=== PATIENT | male | born 1975 | race Caucasian/White ===

== ENCOUNTER 2020-09-07 06:46 | Emergency (ER) | payer MEDICAID, SELFPAY ==
[2020-09-07 06:47] VITALS: BP 128/93; PULSE 58; RESP 20; TEMP 36.4; O2SAT 100; BMI 20.9
--- NOTE | 2020-09-07 06:55 | CT_ITS ---
STUDY: CT ABDOMEN AND PELVIS WITHOUT CONTRAST REASON FOR EXAM: Male, 45 years old. Left flank pain and hematuria x several days, hx stones, hernia surgery. RADIATION DOSAGE (If Supplied By Facility): CTDIvol = ( 6.14 ) mGy, DLP = ( 297.91 ) mGycm TECHNIQUE: Transaxial images were obtained from the dome of the diaphragm to the symphysis pubis without oral contrast, and without intravenous contrast. Sagittal and coronal images were reconstructed. Individualized dose optimization techniques were used for this CT. COMPARISON: 06/24/2017 FINDINGS: The visualized lung bases are unremarkable. The visualized portions of the heart are within normal limits. Normal liver. Normal gallbladder and extrahepatic biliary system. Normal spleen. Normal pancreas. Normal bilateral adrenal glands. There are scattered calcifications of the right kidney measuring up to 7 mm on image 45 of series 1002. Small punctate calcifications of the left kidney measuring 1-2 mm, centrally. No hydronephrosis or ureteric calculi. There are numerous vascular phleboliths of the bilateral pelvis. No perinephric stranding. Normal visualized stomach. Normal small intestine. Normal colon. The appendix is visualized and appears normal. Normal abdominal aorta. Normal inferior vena cava. Normal retroperitoneum. Nondistended urinary bladder. There are operative changes of the bilateral inguinal regions. Normal osseous structures. CT/Abdomen/Pelvis without Cont IMPRESSION: 1. Bilateral nephrolithiasis (right calculi larger than left). No hydronephrosis or ureteral calculi. Electronically Signed: Daniel Giordano MD ([place]) at 7:56 EST , Service support ,
--- NOTE | 2020-09-07 06:55 | ED.VIS.GEN ---
History of Present Illness Informant: Patient Narrative: 45-year-old male presents to the emergency department with left flank pain rating to the left inguinal region. He tells me he has a history of kidney stones. He notes for the previous couple days has had pain in his right flank but that is gone away and tonight developed severe pain in the left flank. He states the left testicle is aching. He notes urinary frequency but very little output. He states that his urine is very dark. He is now vomiting. No fevers. He has been having normal bowel movements. He has had kidney stones in the past but never required surgery. He notes a history of inguinal hernia surgery. <Son Perales - Last Filed: 09/07/20 06:55> <William Mccarthy - Last Filed: 09/07/20 08:48> Chief Complaint: Flank Pain Past Medical History Past Medical History: - - Kidney stones Surgical History: herniorrhaphy Smoking Status: Current every day smoker Drugs: None <Son Perales - Last Filed: 09/07/20 06:55> <William Mccarthy - Last Filed: 09/07/20 08:48> - Allergies and Home Meds Allergies/Adverse Reactions: Allergies No Known Allergies Allergy (Verified 09/07/20 06:52) Primary Care Physician: Care Physician,No Primary [Primary Care Provider] - Review of Systems General: Denies: Chills, Fever, Sweats Eyes: Denies: Visual changes - bilaterally, Diplopia ENT: Denies: Rhinorrhea, Sore throat Cardiovascular: Denies: Chest pain, Palpitations Respiratory: Denies: Dyspnea, Cough, Dyspnea on exertion Gastrointestinal: Reports: Abdominal pain, Nausea, Vomiting. Denies: Diarrhea, Melena, Hematochezia Genitourinary: Reports: Frequency, - - Dark urine. Denies: Dysuria, Hematuria Musculoskeletal: Reports: Back pain. Denies: Extremity Pain Skin: Denies: Rash, Wounds Neurological: Denies: Headache, Weakness, Numbness <Son Perales - Last Filed: 09/07/20 06:55> Physical Exam Vital Signs/Narrative: Vital Signs Temp Pulse Resp BP Pulse Ox 09/07/20 06:47 97.6 F L 58 L 20 H 128/93 H 100 Inital Vital Signs reviewed: Yes General: Well nourished, Well developed, No Acute Distress, - - Patient is vomiting Head: Normocephalic, Atraumatic Eyes: Perrl, EOMI ENT: Moist mucous membranes, No rhinorrhea Neck: Supple, Nontender Cardiovascular: Regular rate, Regular rhythm, No murmurs Respiratory: No distress, CTA bilaterally, Chest nontender Abdomen: Soft, Nontender, Nondistended, Normal bowel sounds Back: CVA tenderness Extremities: Nontender, No edema Skin: Normal color, No rash Neurological: Alert, Oriented x3, Cranial nerves II-XII grossly intact, Normal Strength, Normal Sensation Psychological: Normal affect, Normal Mood <Son Perales - Last Filed: 09/07/20 06:55> Vital Signs/Narrative: Vital Signs Temp Pulse Resp BP Pulse Ox 09/07/20 06:47 97.6 F L 58 L 20 H 128/93 H 100 <William Mccarthy - Last Filed: 09/07/20 08:48> Diagnostic/Tx/Re-eval - Medical Decision Making Care of the patient was turned over to me. CBC shows a leukocytosis of 15.0. This is likely due to the nausea and vomiting. Basic metabolic profile was essentially within normal limits. CT scan of the abdomen pelvis was obtained. There is no ureteral calculi or hydronephrosis or hydroureter. Urinalysis showed some hematuria but no evidence of urinary tract infection. Patient was feeling somewhat better on reevaluation. Patient was given a prescription for Zofran. Patient was instructed to follow-up with his primary care physician in 5 to 7 days. Patient understood and was agreeable with the plan. All questions were answered. <William Mccarthy - Last Filed: 09/07/20 08:48> ED Disposition <Son Perales - Last Filed: 09/07/20 06:55> <William Mccarthy - Last Filed: 09/07/20 08:48> - Plan for ED Patient: Disposition: Home or Assisted Living Diagnosis: Left flank pain Instructions: ED Flank Pain, Uncertain Cause Prescriptions: Ondansetron [Zofran Odt] 4 mg PO Q8H PRN PRN #10 tab PRN Reason: Nausea Prescription Printed Referrals: Zahira Brower [NON-STAFF] - 5-7 Days
[2020-09-07 07:04] LABS: Absolute Lymphocyte Count 3.63 X10^3/uL (0.83-4.51); Basophil# 0.07 X10^3/uL; Basophil% 0.5 % (0-1); Eosinophil# 1.09 X10^3/uL; Eosinophils% 7.3 % (0-5); Hematocrit 45.5 % (40-54); Hemoglobin 15.1 g/dL (13.0-16.5); Lymphocyte # 3.63 X10^3/ul (4.0); Lymphocyte % 24.2 % (19-41); Mean Corp Hgb Conc 33.2 g/dL (32-36); Mean Corpuscular Hgb 30.3 pg (27.0-32.0); Mean Corpuscular Volume 91.4 fL (80-94); Mean Platelet Vol. 12.2 fl (6.2-12.0); Monocyte# 1.18 X10^3/uL; Monocyte% 7.9 % (0-10); NRBC Flagged by Analyzer 0 % (0-5); Neutrophil # 8.97 X10^3/uL (2.7-7.7); Neutrophil % 59.8 % (47-70); Platelet Count 283 K/mm3 (150-450); RBC Distribution Width CV 13.1 % (11.6-14.6); RBC Distribution Width SD 43.9 fl (35.1-43.9); Red Blood Count 4.98 M/mm3 (4.6-6.2)
[2020-09-07] MEDS: Ondansetron 4 MG/2 ML Vial IV (07:07)
[2020-09-07] MEDS: 0.9% Normal Saline 1,000 ML 250 ML IV (07:07)
[2020-09-07] MEDS: Morphine 4 MG/ML Syringe IV (07:08)
[2020-09-07] MEDS: Ketorolac 30 MG/ML Syringe IV (07:08)
[2020-09-07 07:25] LABS: Anion Gap 4 (5-15); BUN 18 mg/dL (7-18); BUN/Creat Ratio 14.5 RATIO (10-20); Calcium,Total 9.4 mg/dL (8.5-10.1); Chloride 109 mmol/L (98-107); Creatinine, Serum 1.24 mg/dL (0.70-1.30); EST Glomerular Filtration Rate 66 mL/min (>60); Est Glom Filt Rate - Afr Amer 80 mL/min (>60); Estimated Creatinine Clearance 75.08 ml/min; Glucose 104 mg/dL (74-106); Potassium 3.8 mmol/L (3.5-5.1); Sodium Level 142 mmol/L (136-145)
[2020-09-07 07:31] LABS: Color, Urine Yellow (Yellow); Glucose, Dipstick Normal (Normal); Ketone-Dipstick 5 mg/dl (Negative); Leukocyte Esterase-Dipstick 25 /ul (Negative); Nitrite-Dipstick Negative (Negative); Occult Blood-Urine 250 /ul (Negative); Protein-Dipstick 30 mg/dl (Negative); Specific Gravity, Urine 1.025 (1.002-1.030); Urine Bilirubin Dipstick Negative (Negative); Urine Clarity Sl. Cloudy (Clear); Urine Urobilinogen 1 mg/dl (Normal)
[2020-09-07 07:45] LABS: Bacteria 1+ /hpf (None Seen); Mucous, Urine 2+ /hpf (<or=2+); Red Blood Cells-Urine 25-50 SEEN /hpf (0-5); Squamous Epithelial Cells - UA 0-5 SEEN /hpf (0-5); White Blood Cells 0-5 SEEN /hpf (0-5)
[2020-09-07 08:57] VITALS: BP 124/68; PULSE 71; RESP 16; O2SAT 99
== END 2020-09-07 08:57 | disposition home or self-care (01) ==
PROVIDERS: Emergency Medicine; Emergency Provider Emergency Medicine
DX: R10.9 Unspecified abdominal pain (principal)
CPT/HCPCS: 74176; 80048; 81001; 85025; 96374; 96375; 99285; J7030; A4216; J2405

== ENCOUNTER 2020-11-07 06:16 | Emergency (ER) | payer MEDICAID, SELFPAY ==
[2020-11-07 06:17] VITALS: BP 133/86; PULSE 54; RESP 14; TEMP 36.1; O2SAT 98; BMI 19.6
--- NOTE | 2020-11-07 06:27 | CT_ITS ---
STUDY: CT ABDOMEN AND PELVIS WITHOUT CONTRAST REASON FOR EXAM: Male, 45 years old. Kidney Stone. Left flank pain. History of right inguinal hernia surgery. RADIATION DOSAGE (If Supplied By Facility): CTDIvol = ( 6.04 ) mGy, DLP = ( 297.48 ) mGycm TECHNIQUE: Transaxial images were obtained from the dome of the diaphragm to the symphysis pubis without oral contrast, and without intravenous contrast. Sagittal and coronal images were reconstructed. Individualized dose optimization techniques were used for this CT. COMPARISON: CT scan 09/07/2020. FINDINGS: The visualized lung bases are unremarkable. The visualized portions of the heart are within normal limits. Normal liver. Normal gallbladder and extrahepatic biliary system. Normal spleen. Normal pancreas. Normal bilateral adrenal glands. There are 5 nonobstructive right renal calculi, ranging up to 8 mm.. There is no demonstrated right ureteral calculus or hydronephrosis. No ureteral calculus is identified. There or 3 nonobstructive left renal calculi, ranging up to 2.5 mm. There is mild hydronephrosis of the left kidney. No ureteral calculus is identified. Normal visualized stomach. Normal small intestine. Normal colon. There is non-visualization of the appendix. There is no evidence for appendicitis. Normal abdominal aorta. Normal inferior vena cava. Normal retroperitoneum. Normal urinary bladder. There are numerous phleboliths in the pelvis bilaterally. Normal abdominal wall. Normal osseous structures. CT/Abdomen/Pelvis without Cont IMPRESSION: Multiple nonobstructive renal calculi bilaterally. Mild hydronephrosis of the left kidney without a visualized left ureteral calculus. Given the presence of numerous pelvic phleboliths, it is conceivable that a small, minimally obstructive distal ureteral calculus might be missed. Alternatively, the hydronephrosis might be due to a recently passed ureteral calculus or pyelonephritis. No other evidence for acute pathology. Electronically Signed: Chance Castaneda MD at 8:04 EDT , Service support ,
--- NOTE | 2020-11-07 06:36 | ED.VIS.GEN ---
History of Present Illness Informant: Patient Narrative: 45-year-old male history of kidney stones presents with left-sided flank pain and testicular pain. He states he has not been able to urinate today. No diarrhea or constipation. He notes some nausea yesterday but did not really have any pain. He notes a chronic ache in his flanks but this feels different. He does not have a primary care doctor. <Son Perales - Last Filed: 11/07/20 07:08> <Sawyer Jackman - Last Filed: 11/07/20 08:49> Chief Complaint: Flank Pain Past Medical History Surgical History: herniorrhaphy Smoking Status: Current every day smoker Drugs: None <Son Perales - Last Filed: 11/07/20 07:08> <Sawyer Jackman - Last Filed: 11/07/20 08:49> - Allergies and Home Meds Allergies/Adverse Reactions: Allergies No Known Allergies Allergy (Verified 09/07/20 06:52) Primary Care Physician: Care Physician,No Primary [Primary Care Provider] - Physical Exam Vital Signs/Narrative: Vital Signs Temp Pulse Resp BP Pulse Ox 11/07/20 06:17 97.0 F L 54 L 14 133/86 H 98 <Son Perales - Last Filed: 11/07/20 07:08> Vital Signs/Narrative: Vital Signs Temp Pulse Resp BP Pulse Ox 11/07/20 08:20 60 18 126/87 H 99 11/07/20 06:17 97.0 F L 54 L 14 133/86 H 98 <Sawyer Jackman - Last Filed: 11/07/20 08:49> Diagnostic/Tx/Re-eval Laboratory Last Values WBC 10.3 K/mm3 (4.4-11.0) 11/07/20 06:30 RBC 4.65 M/mm3 (4.6-6.2) 11/07/20 06:30 Hgb 14.0 g/dL (13.0-16.5) 11/07/20 06:30 Hct 42.4 % (40-54) 11/07/20 06:30 MCV 91.2 fL (80-94) 11/07/20 06:30 MCH 30.1 pg (27.0-32.0) 11/07/20 06:30 MCHC 33.0 g/dL (32-36) 11/07/20 06:30 RDW Std Deviation 45.7 fl (35.1-43.9) H 11/07/20 06:30 RDW Coeff of Mitch 13.4 % (11.6-14.6) 11/07/20 06:30 Plt Count 241 K/mm3 (150-450) 11/07/20 06:30 MPV 11.6 fl (6.2-12.0) 11/07/20 06:30 Immature Gran % (Auto) 0.300 % (0.0-0.9) 11/07/20 06:30 Neut % (Auto) 59.4 % (47-70) 11/07/20 06:30 Lymph % (Auto) 22.0 % (19-41) 11/07/20 06:30 [place] % (Auto) 10.0 % (0-10) 11/07/20 06:30 Eos % (Auto) 7.6 % (0-5) H 11/07/20 06:30 Baso % (Auto) 0.7 % (0-1) 11/07/20 06:30 Absolute Neuts (auto) 6.2 X10^3/uL (2.0-7.7) 11/07/20 06:30 Absolute Lymphs (auto) 2.27 X10^3/uL (0.83-4.51) 11/07/20 06:30 Nucleated RBC % 0 % (0-5) 11/07/20 06:30 Sodium 140 mmol/L (136-145) 11/07/20 06:30 Potassium 3.9 mmol/L (3.5-5.1) 11/07/20 06:30 Chloride 107 mmol/L (98-107) 11/07/20 06:30 Carbon Dioxide 29.0 mmol/L (21.0-32.0) 11/07/20 06:30 Anion Gap 4 (5-15) L 11/07/20 06:30 BUN 18 mg/dL (7-18) 11/07/20 06:30 Creatinine 1.31 mg/dL (0.70-1.30) H 11/07/20 06:30 Estim Creat Clear Calc 68.43 ml/min 11/07/20 06:30 Est GFR (MDRD) Af Amer 75 mL/min (>60) 11/07/20 06:30 Est GFR (MDRD) Non-Af 62 mL/min (>60) 11/07/20 06:30 BUN/Creatinine Ratio 13.7 RATIO (10-20) 11/07/20 06:30 Glucose 112 mg/dL (74-106) H 11/07/20 06:30 Calcium 9.3 mg/dL (8.5-10.1) 11/07/20 06:30 Urine Color Yellow (Yellow) 11/07/20 06:30 Urine Clarity Clear (Clear) 11/07/20 06:30 Urine pH 5.0 (5.0 - 8.0) 11/07/20 06:30 Ur Specific [place] 1.025 (1.002-1.030) 11/07/20 06:30 Urine Protein 15 mg/dl (Negative) H 11/07/20 06:30 Urine Glucose (UA) Normal mg/dl (Normal) 11/07/20 06:30 Urine Ketones 5 mg/dl (Negative) H 11/07/20 06:30 Urine Occult Blood 25 /ul (Negative) H 11/07/20 06:30 Urine Nitrite Negative (Negative) 11/07/20 06:30 Urine Bilirubin Negative mg/dL (Negative) 11/07/20 06:30 Urine Urobilinogen 1 mg/dl (Normal) H 11/07/20 06:30 Ur Leukocyte Esterase 25 /ul (Negative) H 11/07/20 06:30 Urine RBC 0-5 SEEN /hpf (0-5) 11/07/20 06:30 Urine WBC 0-5 SEEN /hpf (0-5) 11/07/20 06:30 Ur Squamous Epith Cells 0 SEEN /hpf (0-5) 11/07/20 06:30 Urine Bacteria 0 SEEN /hpf (None Seen) 11/07/20 06:30 Urine Mucus 0 SEEN /hpf (<or=2+) 11/07/20 06:30 <Son Perales - Last Filed: 11/07/20 07:08> - Medical Decision Making Patient signed out to me at 0700 hrs. for evaluation of left flank pain. Patient has had episodes where he has flank pain and no kidney stones are seen. Vital signs are stable and he is afebrile. Lab work shows white blood cell count 10.3, hemoglobin 14.0, hematocrit 42.4, platelets 241. On BMP electrolytes are normal. Creatinine is 1.31 with no comparison. UA shows occult blood but no infection. Patient had return of pain and nausea and was given oxycodone and Phenergan. Patient CT read shows no definitive obstructing stone however does show some hydronephrosis suspicious for stone. Patient has multiple phleboliths which complicate the CT read by the radiologist. Patient will be treated as ureteral stone although it is possible he could have passed this. He is given follow-up with a primary care physician as well as Dr. Johansen. Patient discharged home with [facility] and Zofran. Patient stable for discharge at this time. Impression: 1. Left-sided renal calculi 2. Hematuria 3. Abnormal creatinine. <Sawyer Jackman - Last Filed: 11/07/20 08:49> ED Disposition <Son Perales - Last Filed: 11/07/20 07:08> <Sawyer Jackman - Last Filed: 11/07/20 08:49> - Plan for ED Patient: Disposition: Home or Assisted Living Instructions: ED Kidney Stone w/ Colic Prescriptions: Hydrocodone Bitart/Apap 5-325 [[place] 5MG-325MG] 1 tablet PO Q6H PRN PRN 3 Days #10 tablet PRN Reason: Pain Prescription Printed Ondansetron [Ondansetron Odt] 4 mg PO Q8H PRN PRN #12 tab.rapdis PRN Reason: Nausea Prescription Printed Referrals: Care Physician,No Primary [Primary Care Provider] - Abraham Johansen MD [STAFF PHYSICIAN] -
[2020-11-07 06:40] LABS: Absolute Lymphocyte Count 2.27 X10^3/uL (0.83-4.51); Absolute Neutrophil Count 6.2 X10^3/uL (2.0-7.7); Bacteria 0 SEEN /hpf (None Seen); Basophil# 0.07 X10^3/uL; Basophil% 0.7 % (0-1); Eosinophil# 0.78 X10^3/uL; Eosinophils% 7.6 % (0-5); Hematocrit 42.4 % (40-54); Lymphocyte # 2.27 X10^3/ul (4.0); Mean Corpuscular Hgb 30.1 pg (27.0-32.0); Mean Corpuscular Volume 91.2 fL (80-94); Mean Platelet Vol. 11.6 fl (6.2-12.0); Monocyte# 1.03 X10^3/uL; Mucous, Urine 0 SEEN /hpf (<or=2+); NRBC Flagged by Analyzer 0 % (0-5); Neutrophil # 6.15 X10^3/uL (2.7-7.7); Neutrophil % 59.4 % (47-70); Platelet Count 241 K/mm3 (150-450); RBC Distribution Width CV 13.4 % (11.6-14.6); RBC Distribution Width SD 45.7 fl (35.1-43.9); Red Blood Count 4.65 M/mm3 (4.6-6.2); Squamous Epithelial Cells - UA 0 SEEN /hpf (0-5); White Blood Count 10.3 K/mm3 (4.4-11.0)
[2020-11-07] MEDS: Ketorolac 30 MG/ML Syringe IV (06:40)
[2020-11-07] MEDS: Ondansetron 4 MG/2 ML Vial IV ×2 (06:40→08:30)
[2020-11-07 06:41] LABS: Color, Urine Yellow (Yellow); Glucose, Dipstick Normal (Normal); Ketone-Dipstick 5 mg/dl (Negative); Leukocyte Esterase-Dipstick 25 /ul (Negative); Nitrite-Dipstick Negative (Negative); Occult Blood-Urine 25 /ul (Negative); Protein-Dipstick 15 mg/dl (Negative); Specific Gravity, Urine 1.025 (1.002-1.030); Urine Bilirubin Dipstick Negative (Negative); Urine Clarity Clear (Clear); Urine Urobilinogen 1 mg/dl (Normal)
[2020-11-07 06:47] LABS: Red Blood Cells-Urine 0-5 SEEN /hpf (0-5); White Blood Cells 0-5 SEEN /hpf (0-5)
[2020-11-07 06:54] LABS: Anion Gap 4 (5-15); BUN 18 mg/dL (7-18); BUN/Creat Ratio 13.7 RATIO (10-20); Calcium,Total 9.3 mg/dL (8.5-10.1); Chloride 107 mmol/L (98-107); Creatinine, Serum 1.31 mg/dL (0.70-1.30); EST Glomerular Filtration Rate 62 mL/min (>60); Est Glom Filt Rate - Afr Amer 75 mL/min (>60); Estimated Creatinine Clearance 68.43 ml/min; Glucose 112 mg/dL (74-106); Potassium 3.9 mmol/L (3.5-5.1); Sodium Level 140 mmol/L (136-145)
[2020-11-07 08:20] VITALS: BP 126/87; PULSE 60; RESP 18; O2SAT 99
[2020-11-07] MEDS: oxyCODONE 5 MG Tablet PO (08:53)
[2020-11-07 08:59] VITALS: BP 153/98; PULSE 44; RESP 16; O2SAT 100
== END 2020-11-07 08:59 | disposition home or self-care (01) ==
PROVIDERS: Emergency Provider Emergency Medicine
DX: N20.0 Calculus of kidney (principal); R31.9 Hematuria, unspecified; R79.89 Other specified abnormal findings of blood chemistry; F17.200 Nicotine dependence, unspecified, uncomplicated; Z87.442 Personal history of urinary calculi
CPT/HCPCS: 74176; 80048; 81001; 85025; 96374; 96375; 96376; 99285; A4216; J2405

== ENCOUNTER 2023-12-18 13:26 | Emergency (ER) | payer MEDICAID, SELFPAY ==
[2023-12-18 13:27] VITALS: BP 144/86; PULSE 69; RESP 14; TEMP 36.8; O2SAT 99; BMI 18.2
--- NOTE | 2023-12-18 13:47 | CT_ITS ---
STUDY: CT ABDOMEN AND PELVIS WITHOUT CONTRAST REASON FOR EXAM: Male, 48 years old. Diffuse abdominal pain RADIATION DOSAGE (If Supplied By Facility): CTDIvol = ( 6.04 ) mGy, DLP = ( 288.42 ) mGycm TECHNIQUE: Transaxial images were obtained from the dome of the diaphragm to the symphysis pubis without oral contrast, and without intravenous contrast. Sagittal and coronal images were reconstructed. Individualized dose optimization techniques were used for this CT. COMPARISON: 2020 FINDINGS: The visualized lung bases are unremarkable. The visualized portions of the heart are within normal limits. Normal liver. Normal gallbladder and extrahepatic biliary system. Normal spleen. Normal pancreas. Normal bilateral adrenal glands. There are multiple bilateral nonobstructing renal stones which have increased in size and number since the previous study. Largest on the right measures 8 mm, largest on the left measures 2 mm. Normal visualized stomach. Normal small intestine. Retained stool noted throughout the colon. There is non-visualization of the appendix. Normal abdominal aorta. Normal inferior vena cava. Normal retroperitoneum. Normal urinary bladder. Multiple phleboliths noted within the pelvis Normal abdominal wall. Normal osseous structures aside from degenerative narrowing at L5/S1. CT/Abdomen/Pelvis without Cont IMPRESSION: Bilateral nonobstructing nephrolithiasis. The calcifications and increased in size and number since the previous study at 2020. Neither ureter is visualized due to the lack of IV contrast and lack of intraperitoneal fat. Hydroureter could be present though not seen on the study. An ultrasound may be of benefit for further evaluation Retained stool throughout the colon Electronically Signed: Jules Ortiz MD at 14:28 EDT ,
[2023-12-18 14:01] LABS: Bacteria 0 SEEN /hpf (None Seen); Mucous, Urine 0 SEEN /hpf (<or=2+); Squamous Epithelial Cells - UA 0 SEEN /hpf (0-5); White Blood Cells 0 SEEN /hpf (0-5)
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
[2023-12-18] MEDS: 0.9% Normal Saline (1000mL) 1,000 ML 1000 ML IV (14:05)
[2023-12-18 14:06] LABS: Color, Urine Brown (Yellow); Glucose, Dipstick Normal (Normal); Ketone-Dipstick 15 mg/dl (Negative); Leukocyte Esterase-Dipstick 100 /ul (Negative); Nitrite-Dipstick Negative (Negative); Occult Blood-Urine 250 /ul (Negative); Protein-Dipstick 500 mg/dl (Negative); Specific Gravity, Urine 1.025 (1.002-1.030); Urine Clarity Turbid (Clear); Urine Urobilinogen 1 mg/dl (Normal); Urine pH 6.5 (5.0 - 8.0)
[2023-12-18 14:07] LABS: Urine Bilirubin Dipstick 1 mg/dL (Negative)
[2023-12-18 14:15] LABS: Red Blood Cells-Urine > 100 SEEN /hpf (0-5)
[2023-12-18 14:15] LABS: Absolute Lymphocyte Count 1.45 X10^3/uL (0.83-4.51); Absolute Neutrophil Count 6.6 X10^3/uL (2.0-7.7); Basophil# 0.06 X10^3/uL; Basophil% 0.6 % (0-1); Eosinophil# 0.06 X10^3/uL; Eosinophils% 0.6 % (0-5); Hematocrit 37.4 % (40-54); Hemoglobin 12.4 g/dL (13.0-16.5); Lymphocyte # 1.45 X10^3/ul (0.83-4.51); Lymphocyte % 15.6 % (19-41); Mean Corp Hgb Conc 33.2 g/dL (32-36); Mean Corpuscular Volume 87.4 fL (80-94); Mean Platelet Vol. 11.9 fl (6.2-12.0); Monocyte# 1.09 X10^3/uL; Monocyte% 11.7 % (0-10); NRBC Flagged by Analyzer 0 % (0-5); Neutrophil # 6.59 X10^3/uL (2.7-7.7); Neutrophil % 71.2 % (47-70); Platelet Count 262 K/mm3 (150-450); RBC Distribution Width CV 13.7 % (11.6-14.6); RBC Distribution Width SD 43.7 fl (35.1-43.9); Red Blood Count 4.28 M/mm3 (4.6-6.2); White Blood Count 9.3 K/mm3 (4.4-11.0)
[2023-12-18 14:36] LABS: ALB/GLOB Ratio 1.1 RATIO (0.9-2.4); AST(SGOT) 40 U/L (15-37); Alanine Aminotransfer ALT/SGPT 22 U/L (16-61); Albumin, Serum 3.7 g/dL (3.2-5.0); Alkaline Phosphatase 68 U/L (45-117); Anion Gap 5 (5-15); BUN 18 mg/dL (7-18); BUN/Creat Ratio 14.9 RATIO (10-20); Calcium,Total 9.5 mg/dL (8.5-10.1); Chloride 104 mmol/L (98-107); Creatinine, Serum 1.21 mg/dL (0.70-1.30); EST Glomerular Filtration Rate 67 mL/min (>60); Est Glom Filt Rate - Afr Amer 82 mL/min (>60); Estimated Creatinine Clearance 64.72 ml/min; Globulin 3.4 g/dL (2.2-4.2); Glucose 93 mg/dL (74-106); Potassium 3.9 mmol/L (3.5-5.1); Protein, Total 7.1 g/dL (6.4-8.2); Sodium Level 137 mmol/L (136-145)
[2023-12-18] MEDS: Cephalexin 250 MG Capsule 500 MG PO (14:55)
== END 2023-12-18 14:57 | disposition home or self-care (01) ==
PROVIDERS: Nurse Practitioner; Emergency Provider Emergency Medicine; Visit Provider Emergency Medicine
DX: R31.9 Hematuria, unspecified (principal); N39.0 Urinary tract infection, site not specified; F17.210 Nicotine dependence, cigarettes, uncomplicated
CPT/HCPCS: 74176; 80053; 81001; 85025; 87086; 87088; 99283; J7030

== ENCOUNTER 2023-12-19 16:09 | Emergency (ER) | payer MEDICAID, SELFPAY ==
[2023-12-19] VITALS (12 sets, daily range): BP systolic 123–156; BP diastolic 80–99; PULSE 72–88; RESP 7–25; TEMP 36.7–37.1; O2SAT 94–100; BMI 16.4
--- NOTE | 2023-12-19 16:15 | EKG12_ITS ---
Test Reason : Blood Pressure : / mmHG Vent. Rate : 078 BPM Atrial Rate : 078 BPM P-R Int : 132 ms QRS Dur : 078 ms QT Int : 370 ms P-R-T Axes : 078 078 039 degrees QTc Int : 421 ms Normal sinus rhythm with sinus arrhythmia Normal ECG Confirmed by YAHAIRA GARCIAS, RADHA ([id number]), film and video editor HARMAN WOLF ([id number]) on 12/21/2023 9:42:55 AM Referred By: Confirmed By:RADHA SYED MD
--- NOTE | 2023-12-19 16:30 | RAD_ITS ---
EXAM: XR CHEST, 2 VIEWS CLINICAL INDICATION: Adventitial breath sounds TECHNIQUE: Frontal and lateral views of the chest. COMPARISON: 05/08/2016 FINDINGS: LUNGS AND PLEURAL SPACES: Hyperinflated lungs without definite focal airspace disease. Possible right upper lobe atelectasis versus artifact. No pneumothorax. No effusion. HEART: No significant abnormality. Cardiac silhouette not enlarged. MEDIASTINUM: Central airways and mediastinal contour are unremarkable. BONES/JOINTS: No significant abnormality. No acute fracture. SOFT TISSUES: No significant abnormality. RAD/Chest PA and Lateral IMPRESSION: Hyperinflated lungs without definite focal airspace disease. Possible right upper lobe atelectasis versus artifact. Electronically Signed: Maximiliano Heller DO at 17:05 EDT ,
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
--- NOTE | 2023-12-19 16:34 | ED.RN ---
1625: I SPOKE WITH DOCTOR LUIS FELIPE, NO, HE DOES NOT NEED A SITTER.
[2023-12-19 16:37] LABS: Absolute Lymphocyte Count 2.55 X10^3/uL (0.83-4.51); Absolute Neutrophil Count 11.3 X10^3/uL (2.0-7.7); Basophil# 0.06 X10^3/uL; Basophil% 0.4 % (0-1); Eosinophil# 0.16 X10^3/uL; Hematocrit 40.4 % (40-54); Hemoglobin 13.8 g/dL (13.0-16.5); Lymphocyte # 2.55 X10^3/ul (0.83-4.51); Lymphocyte % 16.6 % (19-41); Mean Corp Hgb Conc 34.2 g/dL (32-36); Mean Corpuscular Hgb 30.1 pg (27.0-32.0); Mean Platelet Vol. 11.6 fl (6.2-12.0); Monocyte# 1.23 X10^3/uL; NRBC Flagged by Analyzer 0 % (0-5); Neutrophil # 11.31 X10^3/uL (2.7-7.7); Neutrophil % 73.7 % (47-70); Platelet Count 291 K/mm3 (150-450); RBC Distribution Width CV 13.5 % (11.6-14.6); RBC Distribution Width SD 43.8 fl (35.1-43.9); Red Blood Count 4.59 M/mm3 (4.6-6.2); White Blood Count 15.4 K/mm3 (4.4-11.0)
[2023-12-19] MEDS: 0.9% Normal Saline (1000mL) 1,000 ML 150 ML IV (16:47)
[2023-12-19 16:50] LABS: Alcohol, Blood (Medical)-Serum < 3.0 mg/dL
[2023-12-19 16:54] LABS: ALB/GLOB Ratio 1.3 RATIO (0.9-2.4); AST(SGOT) 68 U/L (15-37); Alanine Aminotransfer ALT/SGPT 27 U/L (16-61); Albumin, Serum 4.3 g/dL (3.2-5.0); Alkaline Phosphatase 68 U/L (45-117); Anion Gap 7 (5-15); BUN 16 mg/dL (7-18); Calcium,Total 9.4 mg/dL (8.5-10.1); Chloride 102 mmol/L (98-107); Creatinine, Serum 1.14 mg/dL (0.70-1.30); EST Glomerular Filtration Rate 72 mL/min (>60); Est Glom Filt Rate - Afr Amer 87 mL/min (>60); Estimated Creatinine Clearance 61.84 ml/min; Globulin 3.2 g/dL (2.2-4.2); Glucose 95 mg/dL (74-106); Potassium 3.3 mmol/L (3.5-5.1); Protein, Total 7.5 g/dL (6.4-8.2); Sodium Level 135 mmol/L (136-145)
[2023-12-19 17:12] LABS: Bacteria 0 SEEN /hpf (None Seen); Mucous, Urine 0 SEEN /hpf (<or=2+); Squamous Epithelial Cells - UA 0 SEEN /hpf (0-5)
[2023-12-19 17:14] LABS: Lactic Acid 1.6 mmol/L (0.4-1.9)
[2023-12-19 17:16] LABS: Color, Urine Yellow (Yellow); Glucose, Dipstick Normal (Normal); Ketone-Dipstick 50 mg/dl (Negative); Leukocyte Esterase-Dipstick 100 /ul (Negative); Nitrite-Dipstick Positive (Negative); Occult Blood-Urine 250 /ul (Negative); Protein-Dipstick 30 mg/dl (Negative); Urine Bilirubin Dipstick Negative (Negative); Urine Clarity Cloudy (Clear); Urine Urobilinogen 1 mg/dl (Normal)
[2023-12-19 17:24] LABS: Red Blood Cells-Urine > 100 SEEN /hpf (0-5); White Blood Cells 0-5 SEEN /hpf (0-5)
[2023-12-19 17:29] LABS: Amphetamine Urine VISTA NEGATIVE (<1000 ng/mL); Barbiturate Urine VISTA NEGATIVE (< 200 ng/mL); Benzodiazepine Urine VISTA NEGATIVE (< 200 ng/mL); Cocaine Urine VISTA NEGATIVE (< 300 ng/mL); Ecstacy Urine VISTA NEGATIVE (< 500 ng/mL); Methadone Urine VISTA NEGATIVE (< 300 ng/mL); PCP Urine VISTA NEGATIVE (< 25 ng/mL); THC Urine VISTA POSITIVE (< 50 ng/mL); Vista UDS pH Range 5
== END 2023-12-19 18:53 | disposition home or self-care (01) ==
PROVIDERS: Emergency Provider Emergency Medicine; Visit Provider Emergency Medicine
DX: R41.82 Altered mental status, unspecified (principal); R31.9 Hematuria, unspecified; E86.0 Dehydration; F17.210 Nicotine dependence, cigarettes, uncomplicated; F12.99 Cannabis use, unspecified with unspecified cannabis-induced disorder
CPT/HCPCS: 71046; 80053; 80307; 80320; 81001; 83605; 85025; 93005; 96360; 96361; 99284; J7030; A4216; G0480

== ENCOUNTER 2023-12-20 09:29 | Emergency (ER) | payer MEDICAID, SELFPAY ==
[2023-12-20 09:31] VITALS: BP 150/99; PULSE 79; PULSE 84; RESP 16; TEMP 36.4; O2SAT 99; BMI 17.1
--- NOTE | 2023-12-20 09:44 | EDS_ITS ---
HPI History of Present Illness Chief Complaint: General Illness Informant: patient and EMS Narrative Narrative: Patient presents to the ER by EMS from the [facility] homeless [facility] because he has felt tingling in both of his forearms and hands for the past hour since he woke up. He denies having any other new issues except for just feeling fatigued. He was seen here yesterday because of hematuria. He states he has not urinated since he was last here, and does not feel the need to. PFSH PFSH no medical history Home Medications ondansetron 4 mg disintegrating tablet 4 mg PO Q8H PRN PRN Nausea ##12 11/07/20 [Rx Last Taken Unknown] cephalexin 500 mg capsule 500 mg PO Q8H 7 days #21 caps 12/18/23 [Rx Last Taken Unknown] Allergy/AdvReac Type Severity Reaction Status Date / Time No Known Allergies Allergy Verified 12/20/23 09:37 Social History household members: none and other details: Patient is residing at the [facility]. Smoking Status: Current every day smoker tobacco type: cigarettes ROS ROS ED Constitutional Constitutional ED: Reports fatigue; Denies chills or fever(s) Eyes Eyes: Denies change in vision or diplopia ENT ENT ED: Denies rhinorrhea or sore throat Cardiovascular Cardiovascular: Denies chest pain or palpitations Respiratory/Chest Respiratory/Chest: Denies cough or dyspnea Gastrointestinal Gastrointestinal: Denies abdominal pain, diarrhea, nausea or vomiting Genitourinary Genitourinary ED: Reports hematuria; Denies dysuria Musculoskeletal Musculoskeletal: Denies back pain or neck pain Integumentary Denies abscess or rash Neurologic Neurologic: Reports paresthesias RUE and LUE; Denies headache(s) or weakness Psychiatric Psychiatric: Reports anxiety; Denies suicidal thoughts EXAM Physical Exam Const Vital Signs: 12/20/23 09:31 12/20/23 09:31 12/20/23 09:36 Temperature 97.5 F L 97.5 F L Temperature Source Oral Oral Pulse Rate 79 84 Respiratory Rate 16 16 Respiratory Pattern Normal Blood Pressure 150/99 H 150/99 H Blood Pressure Mean 116 116 Pulse Ox 99 99 Oxygen Delivery Method Room Air Room Air Positive well nourished and well developed General Appearance ED: well developed and NAD HEENT Reports moist mucous membranes normocephalic and atraumatic Eyes PERRL and EOMs intact bilaterally Neck full ROM and supple Resp normal respiratory effort and clear to auscultation bilaterally Cardio regular rate, regular rhythm and no murmurs GI non-tender and non-distended Auscultation: normoactive bowel sounds Palpation: soft Back/Spine no CVA tenderness General Back: other FROM Extremity normal to inspection General Extremety ED: Negative for edema, pulses abnormal or tenderness General Extremity: Negative for edema or pulses abnormal Neuro oriented x3, CN's II-XII intact bilaterally and no sensory deficits noted Sensorium / Orientation: awake and alert Motor Exam: strength 5/5 throughout Psych Mood & Affect: anxious Skin no rashes or lesions noted and no wounds MDM MDM MDM Narrative Medical decision making narrative: Patient is a very benign exam. His vital signs are normal. He states as long as you can tell me that I can go back to the [employer] and not if I get this tingling again, I will be fine and I will go back. I reviewed the labs that he had from yesterday. He is hypokalemic at 3.3. I think reasonable to give him some potassium and no need to repeat this. I reassured him. I given appropriate instructions for hypokalemia. Also reviewed his urinalysis from the day before which showed hematuria and positive nitrite, culture was sent and it is negative, so he does not need to be put on antibiotics for infection. Again I reinforced the need to follow-up with urology as he was previously instructed/referred. History & Record Review Additional record(s) reviewed:: Prior labs Discharge Plan Triage Chief Complaint: General Illness ED Provider: Keegan Corbett Dx/Rx/DC Orders Clinical Impression: Hand paresthesia, Hypokalemia Instructions: ED Hypokalemia, ED Paraesthesias Prescriptions: No Action ondansetron 4 MG tablet,disintegrating 4 mg PO Q8H PRN PRN (Reason: Nausea) Qty: 12 0RF cephalexin 500 mg capsule 500 mg PO Q8H 7 Days Qty: 21 0RF Primary Care Provider: Care Physician,No Primary Referrals: Zahira Brower [Non-Staff] - As Needed Care Physician,No Primary [Primary Care Provider] - Disposition Disposition: Home, Self Care
[2023-12-20 09:49] VITALS: BP 134/85; PULSE 71; RESP 16; TEMP 36.4; O2SAT 99
== END 2023-12-20 09:50 | disposition home or self-care (01) ==
LOC: ED 09:49
PROVIDERS: Emergency Provider Emergency Medicine; Visit Provider Emergency Medicine
DX: R20.2 Paresthesia of skin (principal); E87.6 Hypokalemia; F17.210 Nicotine dependence, cigarettes, uncomplicated
CPT/HCPCS: 99282

== ENCOUNTER 2023-12-21 11:03 | Emergency (ER) | payer MEDICAID, SELFPAY ==
[2023-12-21 11:04] VITALS: BP 133/99; PULSE 91; RESP 16; TEMP 36.2; O2SAT 97; BMI 18.1
--- NOTE | 2023-12-21 11:21 | EDS_ITS ---
HPI History of Present Illness Chief Complaint: Dental Detail of Chief Complaint: Dental pain and tongue pain Informant: patient Narrative Narrative: Patient presents to the emergency department complaining mostly of tongue pain that started today. Patient states that he has a sharp corner of a molar on the left lower side that he thinks rubbed up against the side of his tongue causing discomfort to his tongue. Patient states that he had 6 or 7 teeth extracted by a dentist in August of this year. He was supposed to have a second appointment and never went back. Patient denies any fevers or chills or sweats. He does not use chewing tobacco but is a smoker. PFSH PFSH Home Medications ondansetron 4 mg disintegrating tablet 4 mg PO Q8H PRN PRN Nausea ##12 11/07/20 [Rx Last Taken Unknown] cephalexin 500 mg capsule 500 mg PO Q8H 7 days #21 caps 12/18/23 [Rx Last Taken Unknown] clindamycin HCl 300 mg capsule (Cleocin HCl) 300 mg PO Q6H #40 CAPSULES 12/21/23 [Rx Last Taken Unknown] hydrocodone-acetaminophen 5-325mg 5mg-325mg 1 tab PO Q4H PRN PRN Pain 2 days #10 TABLETS 12/21/23 [Rx Last Taken Unknown] Allergy/AdvReac Type Severity Reaction Status Date / Time No Known Allergies Allergy Verified 12/21/23 11:04 Social History household members: none and other details: Patient is residing at the [facility]. Smoking Status: Current every day smoker tobacco type: cigarettes ROS ROS ED Review of Systems ROS Unobtainable: other Constitutional Constitutional ED: Reports lethargy; Denies chills, fever(s), sweats or weight loss Eyes Eyes: Denies blurry vision, change in vision or diplopia ENT ENT ED: Reports other Details: Tongue pain and dental pain ; Denies rhinorrhea or sore throat Cardiovascular Cardiovascular: Denies chest pain, orthopnea or racing heartbeat Respiratory/Chest Respiratory/Chest: Denies cough, dyspnea, dyspnea on exertion, orthopnea or sputum Gastrointestinal Gastrointestinal: Denies abdominal pain, diarrhea, nausea or vomiting Genitourinary Genitourinary ED: Denies dysuria, hematuria or urinary frequency Musculoskeletal Musculoskeletal: Denies arthralgias, back pain, myalgias or neck pain Integumentary Denies abscess, Abrasions or rash Neurologic Neurologic: Denies headache(s) or weakness Psychiatric Psychiatric: Denies anxiety, depression or suicidal thoughts Endocrine Endocrinology: Denies polydipsia, polyphagia or polyuria Hematologic/Lymphatic Hematologic/Lymphatic: Denies easy bleeding, easy bruising or lymphadenopathy Allergic/Immunologic Allergic/Immunologic ED: Denies mouth swelling, tongue swelling or urticaria EXAM Physical Exam Const Vital Signs: 12/21/23 11:04 12/21/23 11:04 Temperature 97.2 F L Temperature Source Temporal Pulse Rate 91 91 Respiratory Rate 16 16 Blood Pressure 133/99 H 133/99 H Blood Pressure Mean 110 110 Pulse Ox 97 97 Oxygen Delivery Method Room Air Room Air Positive well nourished and well developed General Appearance ED: well developed and NAD HEENT Reports TM's clear and moist mucous membranes HEENT Narrative: Dentition-evaluation of the left lower teeth does reveal sharp edge to his left lower molar tooth number #18. Slightly tender to palpation. At the lateral base of the tongue on the left side there is some superficial ulceration noted as tender to palpation. No significant cellulitic changes. No abscesses noted. There is no fluctuance. Patient has no facial cellulitis normocephalic and atraumatic; Negative for trauma or tenderness Tympanic Membrane ED: Yes TM's clear Eyes PERRL and EOMs intact bilaterally General Eye ED: Negative for pale conjunctiva or scleral icterus Neck no lymphadenopathy, supple and no JVD General: Negative for tenderness Chest Wall inspection of chest normal and palpation of chest normal Chest: Negative for tenderness Resp normal respiratory effort and clear to auscultation bilaterally Effort and Inspection: Negative for respiratory distress or pain with movement Auscultation: Negative for rhonchi, wheezes or diminished lung sounds Cardio regular rate, regular rhythm, S1 normal heart sound, S2 normal heart sound and no murmurs Peripheral Pulses: pulses 2+ throughout GI normal to inspection, nondistended, normoactive bowel sounds, soft to palpation, non-tender, non-distended and no masses Back/Spine no CVA tenderness and no thoracic nor lumbar tenderness Extremity normal to inspection General Extremety ED: Negative for edema General Extremity: Negative for edema Neuro oriented x3, CN's II-XII intact bilaterally, no sensory deficits noted and gait normal Sensorium / Orientation: awake, alert, oriented to person, oriented to place and oriented to time Motor Exam: strength 5/5 throughout and strength abnormal Psych mental status grossly normal Skin no rashes or lesions noted and no wounds MDM MDM MDM Narrative Medical decision making narrative: Patient presents with left lower tongue pain suspect likely related to an ulceration related to abrading against a tooth. At this point we will start him on clindamycin given a prescription for few [place] for pain. Will refer to dentist for follow-up. Discharge Plan Triage Chief Complaint: Dental ED Provider: Kimberly Zheng Dx/Rx/DC Orders Clinical Impression: Pain, dental, Tongue pain Instructions: ED Canker Sore, ED Dental Pain Prescriptions: New clindamycin HCl [Cleocin HCl] 300 mg capsule 300 mg PO Q6H Qty: 40 0RF hydrocodone-acetaminophen [hydrocodone-acetaminophen] 5-325 mg tablet 1 tab PO Q4H PRN PRN (Reason: Pain) 2 Days Qty: 10 0RF No Action ondansetron 4 MG tablet,disintegrating 4 mg PO Q8H PRN PRN (Reason: Nausea) Qty: 12 0RF cephalexin 500 mg capsule 500 mg PO Q8H 7 Days Qty: 21 0RF Primary Care Provider: Care Physician,No Primary Referrals: Care Physician,No Primary [Primary Care Provider] - Activity Restrictions/Additional Instructions: Follow-up with a dentist within the next 3 to 5 days. Disposition Disposition: Home, Self Care
[2023-12-21] MEDS: Clindamycin HCl 150 MG Capsule 300 MG PO (11:36)
[2023-12-21 11:37] VITALS: BP 133/99; PULSE 89; RESP 16; TEMP 36.4; O2SAT 97
== END 2023-12-21 11:39 | disposition home or self-care (01) ==
PROVIDERS: Emergency Provider Emergency Medicine; Visit Provider Emergency Medicine
DX: K08.89 Other specified disorders of teeth and supporting structures (principal); F17.210 Nicotine dependence, cigarettes, uncomplicated
CPT/HCPCS: 99282

== ENCOUNTER 2024-01-05 13:30 | Emergency (ER) | payer MEDICAID, SELFPAY ==
[2024-01-05 13:31] VITALS: BP 138/115; PULSE 97; RESP 18; TEMP 36.3; O2SAT 99; BMI 17.4
[2024-01-05 14:28] LABS: Bacteria 0 SEEN /hpf (None Seen); Mucous, Urine 0 SEEN /hpf (<or=2+); Squamous Epithelial Cells - UA 0 SEEN /hpf (0-5)
[2024-01-05 14:45] LABS: Color, Urine Yellow (Yellow); Glucose, Dipstick Normal (Normal); Ketone-Dipstick 15 mg/dl (Negative); Leukocyte Esterase-Dipstick 25 /ul (Negative); Nitrite-Dipstick Negative (Negative); Occult Blood-Urine 250 /ul (Negative); Protein-Dipstick 30 mg/dl (Negative); Specific Gravity, Urine 1.025 (1.002-1.030); Urine Bilirubin Dipstick Negative (Negative); Urine Clarity Clear (Clear); Urine Urobilinogen 1 mg/dl (Normal)
[2024-01-05 14:54] LABS: Red Blood Cells-Urine 25-50 SEEN /hpf (0-5); White Blood Cells 0-5 SEEN /hpf (0-5)
[2024-01-05 15:26] LABS: Absolute Lymphocyte Count 2.15 X10^3/uL (0.83-4.51); Absolute Neutrophil Count 6.5 X10^3/uL (2.0-7.7); Basophil# 0.06 X10^3/uL; Basophil% 0.6 % (0-1); Eosinophil# 0.14 X10^3/uL; Eosinophils% 1.4 % (0-5); Hematocrit 38.1 % (40-54); Hemoglobin 12.7 g/dL (13.0-16.5); Lymphocyte # 2.15 X10^3/ul (0.83-4.51); Lymphocyte % 22.1 % (19-41); Mean Corp Hgb Conc 33.3 g/dL (32-36); Mean Corpuscular Hgb 30.2 pg (27.0-32.0); Mean Corpuscular Volume 90.5 fL (80-94); Mean Platelet Vol. 10.9 fl (6.2-12.0); Monocyte# 0.91 X10^3/uL; Monocyte% 9.3 % (0-10); NRBC Flagged by Analyzer 0 % (0-5); Neutrophil # 6.46 X10^3/uL (2.7-7.7); Neutrophil % 66.3 % (47-70); Platelet Count 314 K/mm3 (150-450); RBC Distribution Width CV 14.6 % (11.6-14.6); RBC Distribution Width SD 48.2 fl (35.1-43.9); Red Blood Count 4.21 M/mm3 (4.6-6.2); White Blood Count 9.8 K/mm3 (4.4-11.0)
[2024-01-05 15:30] VITALS: BP 124/94; PULSE 64; RESP 17; O2SAT 97
--- NOTE | 2024-01-05 15:44 | CT_ITS ---
STUDY: CT ABDOMEN AND PELVIS WITH CONTRAST REASON FOR EXAM: Male, 48 years old. Painless gross hematuria, weight loss RADIATION DOSAGE (If Supplied By Facility): CTDIvol = ( 7.49 ) mGy, DLP = ( 469.71 ) mGycm TECHNIQUE: Transaxial images were obtained from the dome of the diaphragm to the symphysis pubis without oral contrast. IV 100mL Isovue-370 was administered. Sagittal and coronal images were reconstructed. Individualized dose optimization techniques were used for this CT. COMPARISON: December 18, 2023 FINDINGS: The visualized lung bases are unremarkable. The visualized portions of the heart are within normal limits. Normal liver. Normal gallbladder and extrahepatic biliary system. Normal spleen. Normal pancreas. Normal bilateral adrenal glands. Tiny nonobstructing right renal calculus is noted.. No renal mass is observed Normal left kidney. Ureters are poorly visualized to [retroperitoneal fat. There are multiple retroperitoneal calcifications which appear vascular. Tiny nonobstructing ureteral calculus cannot be entirely excluded Normal visualized stomach. Normal small intestine. Diffuse fecal retention is noted throughout the colon.. No definitive evidence for acute appendicitis.. Normal abdominal aorta. Normal inferior vena cava. Normal retroperitoneum. Bladder is poorly distended and thick walled and incompletely filled with contrast and cannot be adequately evaluated. Normal abdominal wall. Lumbar spine demonstrates mild spondylosis. CT/Abdomen/Pelvis W IV Cont ONLY IMPRESSION: Tiny nonobstructing right renal calculus.. No evidence for renal obstruction or definitive evidence for ureteral calculus given limited visualization of the ureters due to paucity of retroperitoneal fat and multiple vascular calcifications. No renal mass identified. Suboptimal study of the bladder due to inadequate filling with contrast Ultrasound may be considered for further evaluation or MRI if clinically warranted. Electronically Signed: Rosalio Martinez MD at 17:18 EDT ,
--- NOTE | 2024-01-05 15:45 | EX.ED.DYSGE1 ---
HPI <Dr. Christiano Murguia MD - Last Filed: 01/06/24 08:32> History of Present Illness Chief Complaint: Flank Pain Detail of Chief Complaint: Right-sided flank upper quadrant abdominal pain that started 2 years ago Informant: patient Onset/Context/Timing Onset: Month(s) Context: Gradual Onset Timing: Continuous Quality: Initially tingling pain now constant discomfort Current Severity: Mild Maximum Severity: Moderate Worsened by: Nothing specific Relieved by: Nothing specific Associated Symptoms Associated Symptoms: Painless gross hematuria with weight loss Narrative Narrative: Patient is a 48-year-old male. He is presently homeless. He presents with right-sided pain that started 2 years ago as a pinch. Is now more significant. He reports weight loss. He is a smoker. Has not had an alcoholic beverage in 8 years. He does endorse gross hematuria. There is no pain. He has no history of renal or ureterolithiasis. He denies dark-colored urine. He denies change in the color of her skin or eyes. He denies light-colored stool. He states he does notice blood on the toilet paper. There is also blood noted in the commode but not in the stool or on the stool. Patient denies headache, visual, ocular auditory symptoms. Patient denies change in cough. He denies dyspnea, dyspnea on exertion. He denies chest discomfort. He has no history of PE or DVT. The gross hematuria started 2 weeks ago. He attributed this to having to move his possessions from 1 residence to another which was a mile to 1.5 miles away. Patient states he was evicted from the [facility] because he had a marijuana bowl in his possession. Prior similar symptoms: No Recent Illness/Hospitalization: No PFSH <Dr. Christiano Murguia MD - Last Filed: 01/06/24 08:32> PFSH Home Medications ?Medication ?Instructions ?Recorded ?Last Taken ?Type ondansetron 4 mg disintegrating 4 mg PO Q8H PRN PRN Nausea ##12 11/07/20 Unknown Rx tablet cephalexin 500 mg capsule 500 mg PO Q8H 7 days #21 caps 12/18/23 Unknown Rx clindamycin HCl 300 mg capsule 300 mg PO Q6H #40 CAPSULES 12/21/23 Unknown Rx (Cleocin HCl) hydrocodone-acetaminophen 5-325mg 1 tab PO Q4H PRN PRN Pain 2 days 12/21/23 Unknown Rx 5mg-325mg #10 TABLETS Allergy/AdvReac Type Severity Reaction Status Date / Time No Known Allergies Allergy Verified 01/05/24 13:33 Social History household members: none and other details: Patient is residing at the [facility]. Smoking Status: Current every day smoker tobacco type: cigarettes ROS <Dr. Christiano Murguia MD - Last Filed: 01/06/24 08:32> ROS ED Constitutional Constitutional ED: Reports weight loss; Denies chills, fever(s), subjective or sweats Eyes Eyes: Denies blurry vision, change in vision or diplopia ENT ENT ED: Denies ear pain, rhinorrhea or sore throat Cardiovascular Cardiovascular: Denies chest pain, orthopnea, palpitations, paroxysmal nocturnal dyspnea or racing heartbeat Respiratory/Chest Respiratory/Chest: Denies cough, dyspnea, dyspnea on exertion, orthopnea or paroxysmal nocturnal dyspnea Gastrointestinal Gastrointestinal: Reports abdominal pain and nausea; Denies constipation, diarrhea, melena or vomiting Genitourinary Genitourinary ED: Reports hematuria; Denies dysuria or urinary frequency Musculoskeletal Musculoskeletal: Denies arthralgias, back pain, myalgias or neck pain Integumentary Denies rash Neurologic Neurologic: Reports weakness; Denies headache(s) or paresthesias Psychiatric Psychiatric: Denies anxiety or depression Hematologic/Lymphatic Hematologic/Lymphatic: Reports systems reviewed and no addt'l complaints, except as documented EXAM <Dr. Christiano Murguia MD - Last Filed: 01/06/24 08:32> Physical Exam Const Vital Signs: 01/05/24 13:31 01/05/24 15:30 01/05/24 17:00 Temperature 97.4 F L Temperature Source Temporal Pulse Rate 97 64 68 Respiratory Rate 18 17 19 H Blood Pressure 138/115 H 124/94 H 135/84 H Blood Pressure Mean 122 104 101 Pulse Ox 99 97 97 Oxygen Delivery Method Room Air Room Air Room Air Positive well developed and cachectic General Appearance ED: well developed, cachectic and NAD; Negative for cyanotic, diaphoretic or pallor Nutritional Appearance: cachectic HEENT Reports dry mucous membranes HEENT Narrative: Head is atraumatic normocephalic. Ears normal. Posterior pharynx is normal. Mouth ED: Yes dry mucous membranes Mouth: dry mucous membranes Eyes PERRL and EOMs intact bilaterally General Eye ED: Negative for pale conjunctiva or scleral icterus Neck no lymphadenopathy, supple and no JVD Neck Narrative: Trachea is midline. There is no cervical lymphadenopathy. Chest Wall inspection of chest normal and palpation of chest normal Resp normal respiratory effort and clear to auscultation bilaterally Cardio regular rate, regular rhythm, S1 normal heart sound, S2 normal heart sound and no murmurs GI normal to inspection, nondistended, normoactive bowel sounds, non-distended and no masses; Negative for hepatosplenomegaly Palpation: tender RUQ Back/Spine no CVA tenderness Thoracic Spine / Upper Back: Negative for thoracic spinal tenderness Lumbar Spine / Lower Back: Negative for lumbar spinal tenderness Extremity normal to inspection Extremity Narrative: There is no clubbing or cyanosis noted. Neuro oriented x3, CN's II-XII intact bilaterally and no sensory deficits noted Sensorium / Orientation: alert Psych mental status grossly normal Skin no rashes or lesions noted, no wounds and No skin turgor normal General Skin Exam: Negative for jaundice or pallor <Dr. Kimberly Zheng DO - Last Filed: 01/05/24 17:53> Physical Exam Const Vital Signs: 01/05/24 13:31 01/05/24 15:30 01/05/24 17:00 Temperature 97.4 F L Temperature Source Temporal Pulse Rate 97 64 68 Respiratory Rate 18 17 19 H Blood Pressure 138/115 H 124/94 H 135/84 H Blood Pressure Mean 122 104 101 Pulse Ox 99 97 97 Oxygen Delivery Method Room Air Room Air Room Air [facility] <Dr. Christiano Murguia MD - Last Filed: 01/06/24 08:32> [facility] Narrative Medical decision making narrative: Differential diagnosis is pain of unknown etiology, liver disease, disease including neoplasm. Will obtain appropriate blood work to assess renal function, CBC H&H and UA. With complaint of painless gross hematuria weight loss will obtain CT with IV contrast of the abdomen pelvis to evaluate for liver versus pathology. Lab Data Attestation: I reviewed the patient's lab results. Lab results narrative: UA reveals hematuria. With gravity is 1.025. Macro is positive for protein, ketones and blood. There is also urobilinogen noted. Labs: Laboratory Results - last 24 hr 01/05/24 01/05/24 14:23 15:10 WBC 9.8 RBC 4.21 L Hgb 12.7 L Hct 38.1 L MCV 90.5 MCH 30.2 MCHC 33.3 RDW Std Deviation 48.2 H RDW Coeff of Mitch 14.6 Plt Count 314 MPV 10.9 Immature Gran % (Auto) 0.300 Neut % (Auto) 66.3 Lymph % (Auto) 22.1 [place] % (Auto) 9.3 Eos % (Auto) 1.4 Baso % (Auto) 0.6 Absolute Neuts (auto) 6.5 Absolute Lymphs (auto) 2.15 Nucleated RBC % 0 Sodium 136 Potassium 3.9 Chloride 105 Carbon Dioxide 28.0 Anion Gap 3 L BUN 14 Creatinine 0.90 Estim Creat Clear Calc 85.42 Est GFR (MDRD) Af Amer 114 Est GFR (MDRD) Non-Af 94 BUN/Creatinine Ratio 15.5 Glucose 86 Calcium 9.2 Total Bilirubin 0.60 AST 28 ALT 22 Alkaline Phosphatase 68 Total Protein 7.3 Albumin 4.0 Globulin 3.3 Albumin/Globulin Ratio 1.2 Lipase 31 Urine Color Yellow Urine Clarity Clear Urine pH 6.0 Ur Specific Ferguson 1.025 Urine Protein 30 H Urine Glucose (UA) Normal Urine Ketones 15 H Urine Occult Blood 250 H Urine Nitrite Negative Urine Bilirubin Negative Urine Urobilinogen 1 H Ur Leukocyte Esterase 25 H Urine RBC 25-50 SEEN Urine WBC 0-5 SEEN Ur Squamous Epith Cells 0 SEEN Urine Bacteria 0 SEEN Urine Mucus 0 SEEN Radiography Diagnostic Testing: Clinical Impression(s) from Imaging Studies Abdomen/Pelvis CT 01/05/24 15:44 IMPRESSION: Tiny nonobstructing right renal calculus.. No evidence for renal obstruction or definitive evidence for ureteral calculus given limited visualization of the ureters due to paucity of retroperitoneal fat and multiple vascular calcifications. No renal mass identified. Suboptimal study of the bladder due to inadequate filling with contrast Ultrasound may be considered for further evaluation or MRI if clinically warranted. Electronically Signed: Rosalio Martinez MD at 17:18 EDT , <Dr. Kimberly Zheng, DO - Last Filed: 01/05/24 17:53> MDM MDM Narrative Medical decision making narrative: Differential diagnosis is pain of unknown etiology, liver disease, disease including neoplasm. Will obtain appropriate blood work to assess renal function, CBC H&H and UA. With complaint of painless gross hematuria weight loss will obtain CT with IV contrast of the abdomen pelvis to evaluate for liver versus pathology. Care of patient turned over to me awaiting CT results of the abdomen pelvis. Patient presented with painless hematuria. CT showed no evidence of kidney masses and there was incomplete visualization of the bladder due to lack of contrast within the bladder. But no obvious definite masses noted. I did discuss case with urology on-call Dr. Johansen who would be happy to see patient in the office for follow-up and further workup for his hematuria. Clinically patient looks well and will be discharged to home in stable condition. Lab Data Labs: Laboratory Results - last 24 hr 01/05/24 01/05/24 14:23 15:10 WBC 9.8 RBC 4.21 L Hgb 12.7 L Hct 38.1 L MCV 90.5 MCH 30.2 MCHC 33.3 RDW Std Deviation 48.2 H RDW Coeff of Mitch 14.6 Plt Count 314 MPV 10.9 Immature Gran % (Auto) 0.300 Neut % (Auto) 66.3 Lymph % (Auto) 22.1 [place] % (Auto) 9.3 Eos % (Auto) 1.4 Baso % (Auto) 0.6 Absolute Neuts (auto) 6.5 Absolute Lymphs (auto) 2.15 Nucleated RBC % 0 Sodium 136 Potassium 3.9 Chloride 105 Carbon Dioxide 28.0 Anion Gap 3 L BUN 14 Creatinine 0.90 Estim Creat Clear Calc 85.42 Est GFR (MDRD) Af Amer 114 Est GFR (MDRD) Non-Af 94 BUN/Creatinine Ratio 15.5 Glucose 86 Calcium 9.2 Total Bilirubin 0.60 AST 28 ALT 22 Alkaline Phosphatase 68 Total Protein 7.3 Albumin 4.0 Globulin 3.3 Albumin/Globulin Ratio 1.2 Lipase 31 Urine Color Yellow Urine Clarity Clear Urine pH 6.0 Ur Specific Ferguson 1.025 Urine Protein 30 H Urine Glucose (UA) Normal Urine Ketones 15 H Urine Occult Blood 250 H Urine Nitrite Negative Urine Bilirubin Negative Urine Urobilinogen 1 H Ur Leukocyte Esterase 25 H Urine RBC 25-50 SEEN Urine WBC 0-5 SEEN Ur Squamous Epith Cells 0 SEEN Urine Bacteria 0 SEEN Urine Mucus 0 SEEN Radiography Diagnostic Testing: Clinical Impression(s) from Imaging Studies Abdomen/Pelvis CT 01/05/24 15:44 IMPRESSION: Tiny nonobstructing right renal calculus.. No evidence for renal obstruction or definitive evidence for ureteral calculus given limited visualization of the ureters due to paucity of retroperitoneal fat and multiple vascular calcifications. No renal mass identified. Suboptimal study of the bladder due to inadequate filling with contrast Ultrasound may be considered for further evaluation or MRI if clinically warranted. Electronically Signed: Rosalio Martinez MD at 17:18 EDT Reading Location ID and State: [facility] / [place] Tel , Service support , Discharge Plan Triage Chief Complaint: Flank Pain ED Provider: Christiano Murguia Dx/Rx/DC Orders Clinical Impression: Hematuria, Unintentional weight loss of more than 10 pounds, Tobacco use, Elevated blood-pressure reading without diagnosis of hypertension Instructions: ED Hematuria Prescriptions: No Action ondansetron 4 MG tablet,disintegrating 4 mg PO Q8H PRN PRN (Reason: Nausea) Qty: 12 0RF cephalexin 500 mg capsule 500 mg PO Q8H 7 Days Qty: 21 0RF clindamycin HCl [Cleocin HCl] 300 mg capsule 300 mg PO Q6H Qty: 40 0RF hydrocodone-acetaminophen [hydrocodone-acetaminophen] 5-325 mg tablet 1 tab PO Q4H PRN PRN (Reason: Pain) 2 Days Qty: 10 0RF Primary Care Provider: Care Physician,No Primary Referrals: Abraham Johansen MD [Med Staff - Active Staff] - 3-5 Days Zahira Brower [Non-Staff] - Print Language: Yoruba Disposition Disposition: Home, Self Care Discharge Date/Time: 01/05/24 18:02
[2024-01-05 16:07] LABS: ALB/GLOB Ratio 1.2 RATIO (0.9-2.4); AST(SGOT) 28 U/L (15-37); Alanine Aminotransfer ALT/SGPT 22 U/L (16-61); Alkaline Phosphatase 68 U/L (45-117); Anion Gap 3 (5-15); BUN 14 mg/dL (7-18); BUN/Creat Ratio 15.5 RATIO (10-20); Calcium,Total 9.2 mg/dL (8.5-10.1); Chloride 105 mmol/L (98-107); EST Glomerular Filtration Rate 94 mL/min (>60); Est Glom Filt Rate - Afr Amer 114 mL/min (>60); Estimated Creatinine Clearance 85.42 ml/min; Globulin 3.3 g/dL (2.2-4.2); Glucose 86 mg/dL (74-106); Lipase 31 U/L (13-75); Potassium 3.9 mmol/L (3.5-5.1); Protein, Total 7.3 g/dL (6.4-8.2); Sodium Level 136 mmol/L (136-145)
[2024-01-05 17:00] VITALS: BP 135/84; PULSE 68; RESP 19; O2SAT 97
== END 2024-01-05 18:02 | disposition home or self-care (01) ==
PROVIDERS: Emergency Provider Emergency Medicine; Visit Provider Emergency Medicine
DX: R31.0 Gross hematuria (principal); F17.210 Nicotine dependence, cigarettes, uncomplicated; R10.11 Right upper quadrant pain; R63.4 Abnormal weight loss; R03.0 Elevated blood-pressure reading, without diagnosis of hypertension; Z59.01 Sheltered homelessness
CPT/HCPCS: 74177; 80053; 81001; 83690; 85025; 99283; Q9967; A4216

== ENCOUNTER 2024-01-07 06:19 | Emergency (ER) | payer MEDICAID, SELFPAY ==
[2024-01-07 06:21] VITALS: BP 134/89; PULSE 78; RESP 18; TEMP 36.8; O2SAT 98; BMI 17.8
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
[2024-01-07] MEDS: Lidocaine 1% /Epi 1:100 (20ml) 20 ML Vial INFILT (07:24)
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
[2024-01-07 08:20] VITALS: BP 140/96; PULSE 76; RESP 18; O2SAT 96
[2024-01-07 08:37] VITALS: BP 140/96; PULSE 76; RESP 18; TEMP 36.7; O2SAT 96
== END 2024-01-07 08:38 | disposition home or self-care (01) ==
PROVIDERS: Emergency Provider Emergency Medicine; Visit Provider Emergency Medicine
DX: S01.111A Laceration without foreign body of right eyelid and periocular area, initial encounter (principal); F17.210 Nicotine dependence, cigarettes, uncomplicated; S41.112A Laceration without foreign body of left upper arm, initial encounter; X99.1XXA Assault by knife, initial encounter; Z59.00 Homelessness unspecified
CPT/HCPCS: 12013; 70450; 99284

== ENCOUNTER 2024-01-10 15:32 | Emergency (ER) | payer MEDICAID, SELFPAY ==
[2024-01-10 15:33] VITALS: BP 134/93; PULSE 74; RESP 18; TEMP 36.4; O2SAT 100; BMI 18.7
== END 2024-01-10 16:24 | disposition left against medical advice (07) ==
PROVIDERS: Emergency Provider Student in an Organized Health Care Education/Training Program; Visit Provider Student in an Organized Health Care Education/Training Program
DX: Z53.21 Procedure and treatment not carried out due to patient leaving prior to being seen by health care provider (principal)

== ENCOUNTER 2025-04-13 16:50 | Emergency (ER) | payer SELFPAY ==
[2025-04-13 16:51] VITALS: BP 134/95; PULSE 73; RESP 15; TEMP 36.5; O2SAT 96; BMI 20.2
[2025-04-13 16:55] VITALS: BP 134/95; PULSE 79; RESP 18; TEMP 36.5; O2SAT 96
--- NOTE | 2025-04-13 17:00 | EDS_ITS ---
HPI History of Present Illness Chief Complaint: ETOH Intox PFSH PFSH Medical History Tobacco use Home Medications ?Medication ?Instructions ?Recorded ?Last Taken ?Type NK 01/07/24 Unknown History Allergy/AdvReac Type Severity Reaction Status Date / Time No Known Allergies Allergy Verified 04/13/25 16:51 Social History household members: none and other details: Patient is residing at the [facility]. Smoking Status: Current every day smoker tobacco type: cigarettes EXAM Physical Exam Const Vital Signs: 04/13/25 16:51 04/13/25 16:55 Temperature 97.7 F L 97.7 F L Temperature Source Oral Oral Pulse Rate 73 79 Respiratory Rate 15 18 Blood Pressure 134/95 H 134/95 H Blood Pressure Mean 108 108 Blood Pressure Source Monitor Blood Pressure Position Semi-Fowlers Blood Pressure Location Left Arm Pulse Ox 96 96 Oxygen Delivery Method Room Air Room Air Discharge Plan Triage Chief Complaint: ETOH Intox ED Provider: Keegan Corbett Dx/Rx/DC Orders Prescriptions: No Action NK Primary Care Provider: Care Physician,No Primary Referrals: Care Physician,No Primary [Primary Care Provider] - Print Language: Yakut
--- NOTE | 2025-04-13 17:00 | EX.ED.SAOD ---
HPI History of Present Illness Chief Complaint: ETOH Intox Informant: patient Narrative Narrative: 49-year-old female found passed out intoxicated at the [facility] [place] Police brought him here to the ER for evaluation. Patient is awake, states that he got off of work and drank alcohol, several tallboy cans of beer, he has a bag with the 2 more unopened cans with him, states that his goal was just to have a good time. He states he is not suicidal, he has no physical symptoms, he denies having pain or injury of any type or any nausea or trouble breathing. He denies recent illness. States he feels fine. He has on his work uniform, and I asked him if he was walking home from work and he states he thinks he was walking home and started drinking on the way but he does not exactly remember. PFSH PFSH Medical History Tobacco use Home Medications ?Medication ?Instructions ?Recorded ?Last Taken ?Type NK 01/07/24 Unknown History Allergy/AdvReac Type Severity Reaction Status Date / Time No Known Allergies Allergy Verified 04/13/25 16:51 Social History household members: none and other details: Patient is residing at the [facility]. Smoking Status: Current every day smoker tobacco type: cigarettes ROS ROS ED Constitutional Constitutional ED: Denies chills or fever(s) Eyes Eyes: Denies change in vision or diplopia ENT ENT ED: Denies rhinorrhea or sore throat Cardiovascular Cardiovascular: Denies chest pain or palpitations Respiratory/Chest Respiratory/Chest: Denies cough or dyspnea Gastrointestinal Gastrointestinal: Denies abdominal pain, diarrhea, nausea or vomiting Genitourinary Genitourinary ED: Denies dysuria or hematuria Musculoskeletal Musculoskeletal: Denies back pain or neck pain Integumentary Denies abscess or rash Neurologic Neurologic: Denies headache(s), paresthesias or weakness Psychiatric Psychiatric: Denies anxiety or suicidal thoughts EXAM Physical Exam Const Vital Signs: 04/13/25 16:51 04/13/25 16:55 Temperature 97.7 F L 97.7 F L Temperature Source Oral Oral Pulse Rate 73 79 Respiratory Rate 15 18 Blood Pressure 134/95 H 134/95 H Blood Pressure Mean 108 108 Blood Pressure Source Monitor Blood Pressure Position Semi-Fowlers Blood Pressure Location Left Arm Pulse Ox 96 96 Oxygen Delivery Method Room Air Room Air Positive well nourished and well developed; Negative for unkempt General Appearance ED: well developed and NAD; Negative for unkempt HEENT Reports moist mucous membranes normocephalic and atraumatic Eyes PERRL and EOMs intact bilaterally Neck full ROM and supple Resp normal respiratory effort and clear to auscultation bilaterally Cardio regular rate, regular rhythm and no murmurs GI non-tender and non-distended Auscultation: normoactive bowel sounds Palpation: soft Back/Spine no CVA tenderness General Back: other FROM Extremity normal to inspection General Extremety ED: Negative for edema, pulses abnormal or tenderness General Extremity: Negative for edema or pulses abnormal Neuro oriented x3, CN's II-XII intact bilaterally and no sensory deficits noted Tiago Coma Scale: document GCS findings Spontaneous Obeys Commands Oriented 15 Sensorium / Orientation: awake and alert Motor Exam: strength 5/5 throughout Psych Psych Narrative: Intoxicated pleasant cooperative. More gentle nystagmus. Otherwise normal neurologic exam able to walk without difficulty. Appearance: Negative for unkempt Skin no rashes or lesions noted and no wounds MDM MDM MDM Narrative Medical decision making narrative: Patient has normal vital signs and is intoxicated, he is trying to walk out. We advised him that we recommend observing him and less he can find a ride home in that case I would be comfortable letting him go. I do not think he needs more of a medical workup or an alcohol level given his level of alertness and his normal vital signs. Discharge Plan Triage Chief Complaint: ETOH Intox ED Provider: Keegan Corbett Dx/Rx/DC Orders Clinical Impression: Alcohol intoxication Instructions: ED Alcohol Intoxication Prescriptions: No Action NK Primary Care Provider: Care Physician,No Primary Referrals: [facility] [Non-Staff] - (As needed for alcohol/addiction services) [facility],Zahira Brower [Non-Staff] - As Needed Print Language: Indian Disposition Disposition: Home, Self Care
[2025-04-13 17:51] VITALS: BP 128/89; PULSE 70; RESP 18; O2SAT 94
[2025-04-13 18:00] VITALS: BP 128/89; PULSE 72; RESP 12; O2SAT 96
[2025-04-13 18:20] VITALS: BP 128/89; PULSE 72; RESP 12; TEMP 37.1; O2SAT 96
--- NOTE | 2025-04-13 18:26 | ED.RN ---
when trying to facilitate a ride for the patient the patient told this RN that he wanted to go home and he wanted us to leave him the fuck alone. discharge papers were given with instructions to follow up with Zahira marlow and 180. Pt. threw discharge papers on the ground while leaving, and security reported that he threw his belongings on the ground next to the trash can on his way out.
== END 2025-04-13 18:22 | disposition home or self-care (01) ==
LOC: ED 17:34
PROVIDERS: Emergency Provider Emergency Medicine; Visit Provider Emergency Medicine
DX: F10.129 Alcohol abuse with intoxication, unspecified (principal); F17.210 Nicotine dependence, cigarettes, uncomplicated; Z53.29 Procedure and treatment not carried out because of patient's decision for other reasons
CPT/HCPCS: 99284